=== PATIENT | female | born 1990 | race Caucasian/White ===

== ENCOUNTER 2017-04-23 12:40 | Emergency (ER) | payer OTHER, MEDICAID ==
[~2017-04-23] VITALS: Ht 160 cm; Wt 58.1 kg
[~2017-04-23 12:40] MED LIST: ACETAMINOPHEN-1 EAC1 PO; AMOXICILLIN 50500 MG PO; AMOXICILLIN500 M1 PO; AMOXICILLIN875 MG PO; APAP500 PO; BACTRIM DS TAB1 EACH PO; CIPRODEX OTIC7.5 ML OTIC; CLEOCIN HCL150 MG PO; CLEOCIN HCL300 MG PO; CLONAZEPAM 1 MG1 M1; CLONIDINE0.1; DOXYCYCLINE 10100 MG PO; FLEXERIL PO; HYDROCODONE-AP1 EAC6 PO; IBUPROFEN 800800 M1 PO; LIDOCAINE VISC100 M1 SWISH&SPIT; MEDROLDOSEPACK PO; MOBIC7.5 MG PO; NAPROSYN500 MG PO; NOHOMEMEDICATIONS; NORCO 5-325 TA1 EACH PO; ONDANSETRON HCL4 M2 PO; PENICILLIN VK500 M1 PO; PERMETHRIN60 GM TOP; PREDNISONE 10 M10 M1 PO; TRAMADOL 50 MG50 MG PO; VENTOLIN HFA INH8 GM IH; VICODIN 5-5001 EACH PO; VICOPROFEN 2001 EACH PO; ZOFRAN ODT4 MG PO; ZOFRAN4 MG PO; ZPAK PO
[2017-04-23] MEDS ORDERED: TRAMADOL 50 MG50 MG PO (12:57)
[2017-04-23 13:12] VITALS: BP 118/57
== END 2017-04-23 13:13 | disposition home or self-care (01) ==
LOC: M.ERS 12:40
DX: K08.89 Other specified disorders of teeth and supporting structures (principal); F17.210 Nicotine dependence, cigarettes, uncomplicated; F41.9 Anxiety disorder, unspecified; F43.10 Post-traumatic stress disorder, unspecified

== ENCOUNTER 2017-06-12 04:16 | Emergency (ER) | payer OTHER, MEDICAID ==
[~2017-06-12] VITALS: Ht 162.6 cm; Wt 77.1 kg
[2017-06-12] MEDS ORDERED: PAXIL10 MG (04:33)
[2017-06-12 06:22] LABS: AMP/METHAMP Negative (Negative); BARBITURATES Negative (Negative); BENZODIAZEPINES Negative (Negative); COCAINE Negative (Negative); METHADONE Negative (Negative); OPIATES POSITIVE (Negative); PCP Negative (Negative); THC POSITIVE (Negative)
[2017-06-12 07:07] LABS: ABSOLUTE EOSINOPHILS 0.2 thou/uL (0.0-0.7); ABSOLUTE LYMPHOCYTES 1.8 thou/uL (0.8-5.3); ABSOLUTE MONOCYTES 0.5 thou/uL (0.0-1.2); ABSOLUTE NEUTROPHILS 4.9 thou/uL (1.6-8.1); BASOPHILS 0.6 %; EOSINOPHILS 2.5 %; HEMATOCRIT 41.8 % (37.0-47.0); LYMPHOCYTES 24.3 %; MCH 33.1 pg (26.0-34.0); MCHC 33.4 g/dL (28.0-37.0); MCV 99.2 fL (80.0-100.0); MONOCYTES 6.5 %; MPV 8.3 fl. (7.2-11.1); NUCLEATED RBCS 0 /100WBC; PLATELET COUNT* 218 thou/uL (150-400); POLYS 66.1 %; RBC 4.22 mil/uL (4.20-5.00); RDW-CV 14.2 % (10.5-14.5); WBC 7.4 thou/uL (4.0-11.0)
[2017-06-12 07:15] LABS: CALCIUM 8.6 mg/dL (8.5-10.1); CREATININE 0.6 mg/dL (0.6-1.3); POTASSIUM 3.7 mmol/L (3.5-5.1)
[2017-06-12 09:23] VITALS: BP 116/77
== END 2017-06-12 09:24 | disposition home or self-care (01) ==
LOC: M.ERS 04:16
PROVIDERS: Emergency Medicine
DX: F10.129 Alcohol abuse with intoxication, unspecified (principal); M25.539 Pain in unspecified wrist; F41.9 Anxiety disorder, unspecified; F43.10 Post-traumatic stress disorder, unspecified

== ENCOUNTER 2018-02-23 13:27 | Emergency (ER) | payer OTHER ==
[~2018-02-23] VITALS: Ht 160 cm; Wt 63.5 kg
[~2018-02-23 13:27] MED LIST changes: +PAXIL10 MG
[2018-02-23] MEDS ORDERED: ZPAK PO (14:58)
[2018-02-23 15:08] VITALS: BP 93/71
== END 2018-02-23 15:14 | disposition home or self-care (01) ==
LOC: M.ERS 13:27
DX: Z20.818 Contact with and (suspected) exposure to other bacterial communicable diseases (principal); F41.9 Anxiety disorder, unspecified; F17.210 Nicotine dependence, cigarettes, uncomplicated; Z98.890 Other specified postprocedural states

== ENCOUNTER 2018-05-09 14:55 | Emergency (ER) | payer OTHER, MEDICAID ==
[~2018-05-09] VITALS: Ht 160 cm; Wt 64.4 kg
[2018-05-09] MEDS ORDERED: CYMBALTA30 MG PO (15:09)
[2018-05-09 16:13] VITALS: BP 120/61
== END 2018-05-09 16:13 | disposition home or self-care (01) ==
LOC: M.ERS 14:55
DX: S90.02XA Contusion of left ankle, initial encounter (principal); S80.02XA Contusion of left knee, initial encounter; S50.02XA Contusion of left elbow, initial encounter; F41.9 Anxiety disorder, unspecified; F43.10 Post-traumatic stress disorder, unspecified; Z98.890 Other specified postprocedural states; F17.210 Nicotine dependence, cigarettes, uncomplicated; W19.XXXA Unspecified fall, initial encounter; Y93.89 Activity, other specified; Y92.89 Other specified places as the place of occurrence of the external cause; Y99.8 Other external cause status

== ENCOUNTER 2018-07-05 11:10 | Emergency (ER) | payer OTHER, MEDICAID ==
[~2018-07-05] VITALS: Ht 160 cm; Wt 108.9 kg
[~2018-07-05 11:10] MED LIST changes: +CYMBALTA30 MG PO
[2018-07-05] MEDS ORDERED: FLONASE 0.05%50 MCG NASAL (11:47)
[2018-07-05 11:56] VITALS: BP 95/59
== END 2018-07-05 11:57 | disposition home or self-care (01) ==
LOC: M.ERS 11:10
DX: J06.9 Acute upper respiratory infection, unspecified (principal); F41.9 Anxiety disorder, unspecified; F17.210 Nicotine dependence, cigarettes, uncomplicated; Z98.890 Other specified postprocedural states; Z90.710 Acquired absence of both cervix and uterus

== ENCOUNTER 2018-12-26 00:02 | Emergency (ER) | payer OTHER, MEDICAID ==
[~2018-12-26 00:02] MED LIST changes: +FLONASE 0.05%50 MCG NASAL
[2018-12-26] MEDS ORDERED: LIDOCAINE VISC100 ML PO (13:18)
[2018-12-26] MEDS ORDERED: NORCO 5-325 TA1 EAC1 PO (13:18)
[2018-12-26] MEDS ORDERED: AMOXICILLIN 50500 MG PO (13:18)
== END 2018-12-26 00:20 | disposition left against medical advice (07) ==
LOC: M.ERS 00:02
DX: Z53.21 Procedure and treatment not carried out due to patient leaving prior to being seen by health care provider (principal)

== ENCOUNTER 2018-12-26 13:02 | Emergency (ER) | payer OTHER, MEDICAID ==
[~2018-12-26] VITALS: Ht 160 cm; Wt 63.0 kg
[2018-12-26 13:09] VITALS: BP 111/83
[2018-12-26] MEDS ORDERED: AMOXICILLIN 50500 MG PO (13:18)
[2018-12-26] MEDS ORDERED: NORCO 5-325 TA1 EAC1 PO (13:18)
[2018-12-26] MEDS ORDERED: LIDOCAINE VISC100 ML PO (13:18)
== END 2018-12-26 13:24 | disposition home or self-care (01) ==
LOC: M.ERS 13:02
DX: K02.9 Dental caries, unspecified (principal); F41.9 Anxiety disorder, unspecified; F17.210 Nicotine dependence, cigarettes, uncomplicated; Z90.710 Acquired absence of both cervix and uterus; Z98.890 Other specified postprocedural states

== ENCOUNTER 2019-05-11 20:22 | Emergency (ER) | payer OTHER, MEDICAID ==
[~2019-05-11] VITALS: Ht 160 cm; Wt 62.6 kg
[~2019-05-11 20:22] MED LIST changes: +LIDOCAINE VISC100 ML PO; +NORCO 5-325 TA1 EAC1 PO
[2019-05-11 21:06] LABS: ABSOLUTE BASOPHILS 0.1 thou/uL (0.0-0.2); ABSOLUTE EOSINOPHILS 0.2 thou/uL (0.0-0.7); ABSOLUTE LYMPHOCYTES 2.7 thou/uL (0.8-5.3); ABSOLUTE MONOCYTES 0.7 thou/uL (0.0-1.2); ABSOLUTE NEUTROPHILS 5.7 thou/uL (1.6-8.1); BASOPHILS 0.7 %; EOSINOPHILS 1.6 %; HEMATOCRIT 38.7 % (37.0-47.0); HEMOGLOBIN 13.3 gm/dL (12.0-15.0); LYMPHOCYTES 28.8 %; MCH 34.1 pg (26.0-34.0); MCHC 34.3 g/dL (28.0-37.0); MCV 99.5 fL (80.0-100.0); MONOCYTES 7.5 %; MPV 8.1 fl. (7.2-11.1); NUCLEATED RBCS 0 /100WBC; PLATELET COUNT* 276 thou/uL (150-400); POLYS 61.4 %; RBC 3.89 mil/uL (4.20-5.00); RDW-CV 13.5 % (10.5-14.5); WBC 9.2 thou/uL (4.0-11.0)
[2019-05-11 21:14] LABS: CALCIUM 9.3 mg/dL (8.5-10.1); CREATININE 0.8 mg/dL (0.6-1.3); POTASSIUM 3.6 mmol/L (3.5-5.1)
[2019-05-11 22:02] LABS: URINE BLOOD 1+ (Negative); URINE CLARITY CLEAR; URINE COLOR YELLOW; URINE GLUCOSE-RANDOM NEGATIVE (Negative); URINE KETONES TRACE (Negative); URINE LEUKOCYTES-REFLEX NEGATIVE (Negative); URINE NITRITE-REFLEX NEGATIVE (Negative); URINE PROTEIN 1+ (Negative); URINE SPECIFIC GRAVITY >= 1.030 (1.005-1.030); URINE UROBILINOGEN 0.2 E.U./dl (0.2-1.0)
[2019-05-11 22:06] LABS: ICTOTEST (BILI CONFIRMATORY) Negative (Negative); URINE BILIRUBIN 1+ (Negative)
[2019-05-11 22:12] LABS: SQUAMOUS >10 Many /LPF (0-3)
[2019-05-11 22:13] LABS: HYALINE CASTS 0-3 Few /LPF (None Seen); MUCUS >6 Heavy strn/LPF (None Seen)
[2019-05-11 22:14] LABS: BACTERIA-REFLEX 1-9 Few /HPF (None Seen); URINE RBC 0-2 Rare /HPF (0-2); URINE WBC-REFLEX 0-5 Rare /HPF (0-5)
[2019-05-11 22:15] LABS: CRYSTALS None Seen /LPF (None Seen)
[2019-05-11 22:46] VITALS: BP 101/85
== END 2019-05-11 22:46 | disposition home or self-care (01) ==
LOC: M.ERS 20:22
PROVIDERS: Personal Emergency Response Attendant
DX: G89.18 Other acute postprocedural pain (principal); R10.31 Right lower quadrant pain; Z48.01 Encounter for change or removal of surgical wound dressing; R10.32 Left lower quadrant pain; F17.210 Nicotine dependence, cigarettes, uncomplicated; Z90.710 Acquired absence of both cervix and uterus; Z90.89 Acquired absence of other organs; Z98.890 Other specified postprocedural states